=== PATIENT | male | born 1960 | race Caucasian/White ===

== ENCOUNTER 2018-03-01 14:21 | Emergency (ER) | payer BC ==
[2018-03-01] MEDS ORDERED: Aspirin 81 MG Tab.Chew PO ONE (14:42)
[2018-03-01] MEDS ORDERED: Nitroglycerin 2% Oint 1 GM UD Packet TOP ONE (14:42)
[2018-03-01] MEDS ORDERED: Sodium Chloride 0.9% 10 ML Syringe FLUSH PRN (14:42)
[2018-03-01] MEDS ORDERED: Sodium Chloride 0.9% 1,000 ML IV SCH (14:45)
--- NOTE | 2018-03-01 14:56 | EDM.PDOC ---
<Dangelo Laird Arlen - Last Filed: 03/01/18 15:13> ED HPI GENERAL MEDICAL PROBLEM - General Chief Complaint: Chest Pain Stated Complaint: CHEST PAIN Time Seen by Provider: 03/01/18 14:33 Source of Information: Reports: Patient, RN Notes Reviewed - History of Present Illness INITIAL COMMENTS - FREE TEXT/NARRATIVE: 57-year-old gentleman comes in with anterior chest discomfort. He had onset of chest pain about one hour ago just sitting at work not doing anything exertional at the time. A pressure type discomfort developed upper mid abdomen radiating to mid chest clear up to the base of his neck still into his back. Discomfort was very severe initially no more moderate. Radiation to shoulder or arm. He did have very mild dizziness initially but that has resolved. States he did get quite anxious with the discomfort. No nausea vomiting or diaphoresis. He does have history of heartburn but this does seem different, does seem more severe. He does not have known history for coronary artery disease. He is on a statin, states his cholesterol on the statin has been very low, in the 120 range. He is not diabetic, has no history of hypertension and does not smoke. Chest Pain Score (Numeric/FACES): 6 - Related Data Allergies Allergy/AdvReac Type Severity Reaction Status Date / Time No Known Allergies Allergy Verified 03/01/18 14:28 Home Meds: Home Meds Rosuvastatin Calcium [Crestor] 10 mg PO BEDTIME 06/15/16 [History] Sertraline [Zoloft] 50 mg PO DAILY 09/02/16 [History] Past Medical History HEENT History: Reports: Impaired Vision Cardiovascular History: Reports: High Cholesterol Psychiatric History: Reports: Anxiety - Past Surgical History Musculoskeletal Surgical History: Reports: Other (See Below) Social & Family History - Family History Family Medical History: Noncontributory - Tobacco Use Smoking Status *Q: Never Smoker - Caffeine Use Caffeine Use: Reports: Coffee - Recreational Drug Use Recreational Drug Use: No ED ROS GENERAL - Review of Systems Review Of Systems: See Below Constitutional: Denies: Fever, Chills, Diaphoresis HEENT: Denies: Throat Pain Respiratory: Denies: Shortness of Breath, Pleuritic Chest Pain Cardiovascular: Reports: Chest Pain, Lightheadedness (Gone) GI/Abdominal: Reports: Abdominal Pain (He does have some upper abdominal discomfort, pressure). Denies: Nausea, Vomiting Musculoskeletal: Reports: Neck Pain, Back Pain. Denies: Shoulder Pain (The pain does radiate to the base of his neck), Arm Pain Skin: Reports: No Symptoms Neurological: Reports: Dizziness (Gone). Denies: Trouble Speaking, Weakness ED EXAM, GENERAL - Physical Exam Exam: See Below General Appearance: Alert, No Apparent Distress Eye Exam: Bilateral Eye: PERRL Throat/Mouth: Normal Inspection Head: Atraumatic Neck: Supple, Full Range of Motion Respiratory/Chest: No Respiratory Distress, Lungs Clear, Normal Breath Sounds, Chest Non-Tender Cardiovascular: Regular Rate, Rhythm GI/Abdominal: Soft, Non-Tender. No: Guarding Extremities: Normal Inspection, Normal Range of Motion. No: Pedal Edema, Leg Pain Neurological: Alert, Oriented, No Motor/Sensory Deficits Skin Exam: Warm, Dry, Normal Color EKG INTERPRETATION EKG Date: 03/01/18 Rhythm: NSR Clay: Normal P-Wave: Present QRS: Normal ST-T: Normal Course - Vital Signs Last Recorded V/S: Last Vital Signs Temp 36.3 C 03/01/18 14:26 Pulse 98 03/01/18 18:18 Resp 24 H 03/01/18 18:18 BP 97/58 L 03/01/18 18:18 Pulse Ox 94 L 03/01/18 18:18 - Orders/Labs/Meds Orders: Active Orders 24 hr Category Date Time Status EKG 12 Lead [EKG Documentation Completion] [RC] STAT Care 03/01/18 14:42 Active Peripheral IV Care [RC] . DIRECTED Care 03/01/18 14:43 Active Peripheral IV Insertion Adult [OM.PC] Stat Oth 03/01/18 14:42 Ordered Labs: Laboratory Tests 03/01/18 03/01/18 03/01/18 Range/Units 15:10 15:10 15:10 WBC 4.60 (4.23-9.07) K/mm3 RBC 4.94 (4.63-6.08) M/mm3 Hgb 14.4 (13.7-17.5) gm/L Hct 43.2 (40.1-51.0) % MCV 87.4 (79.0-92.2) fl MCH 29.1 (25.7-32.2) pg MCHC 33.3 (32.2-35.5) g/dl RDW Std Deviation 44.4 H (35.1-43.9) fL Plt Count 235 (163-337) K/mm3 MPV 9.4 (9.4-12.3) fl Neut % (Auto) 51.3 (34.0-67.9) % Lymph % (Auto) 35.4 (21.8-53.1) % Marion % (Auto) 12.0 (5.3-12.2) % Eos % (Auto) 1.1 (0.8-7.0) Baso % (Auto) 0.2 (0.1-1.2) % Neut # (Auto) 2.36 (1.78-5.38) K/mm3 Lymph # (Auto) 1.63 (1.32-3.57) K/mm3 Marion # (Auto) 0.55 (0.30-0.82) K/mm3 Eos # (Auto) 0.05 (0.04-0.54) K/mm3 Baso # (Auto) 0.01 (0.01-0.08) K/mm3 Sodium 138 (136-145) mEq/L Potassium 4.0 (3.5-5.1) mEq/L Chloride 104 (98-107) mEq/L Carbon Dioxide 21 (21-32) mEq/L Anion Gap 17.0 H (5-15) BUN 24 H (7-18) mg/dL Creatinine 1.0 (0.7-1.3) mg/dL Est Cr Clr Drug Dosing 83.14 mL/min Estimated GFR (MDRD) > 60 (>60) mL/min BUN/Creatinine Ratio 24.0 H (14-18) Glucose 99 (74-106) mg/dL Calcium 9.3 (8.5-10.1) mg/dL Total Bilirubin 0.4 (0.2-1.0) mg/dL AST 23 (15-37) U/L ALT 36 (16-63) U/L Alkaline Phosphatase 69 (46-116) U/L Troponin I < 0.017 (0.00-0.056) ng/mL Total Protein 8.0 (6.4-8.2) g/dl Albumin 3.9 (3.4-5.0) g/dl Globulin 4.1 gm/dL Albumin/Globulin Ratio 1.0 (1-2) Lipase 139 (73-393) U/L 03/01/18 Range/Units 17:02 WBC (4.23-9.07) K/mm3 RBC (4.63-6.08) M/mm3 Hgb (13.7-17.5) gm/L Hct (40.1-51.0) % MCV (79.0-92.2) fl MCH (25.7-32.2) pg MCHC (32.2-35.5) g/dl RDW Std Deviation (35.1-43.9) fL Plt Count (163-337) K/mm3 MPV (9.4-12.3) fl Neut % (Auto) (34.0-67.9) % Lymph % (Auto) (21.8-53.1) % Marion % (Auto) (5.3-12.2) % Eos % (Auto) (0.8-7.0) Baso % (Auto) (0.1-1.2) % Neut # (Auto) (1.78-5.38) K/mm3 Lymph # (Auto) (1.32-3.57) K/mm3 Marion # (Auto) (0.30-0.82) K/mm3 Eos # (Auto) (0.04-0.54) K/mm3 Baso # (Auto) (0.01-0.08) K/mm3 Sodium (136-145) mEq/L Potassium (3.5-5.1) mEq/L Chloride (98-107) mEq/L Carbon Dioxide (21-32) mEq/L Anion Gap (5-15) BUN (7-18) mg/dL Creatinine (0.7-1.3) mg/dL Est Cr Clr Drug Dosing mL/min Estimated GFR (MDRD) (>60) mL/min BUN/Creatinine Ratio (14-18) Glucose (74-106) mg/dL Calcium (8.5-10.1) mg/dL Total Bilirubin (0.2-1.0) mg/dL AST (15-37) U/L ALT (16-63) U/L Alkaline Phosphatase (46-116) U/L Troponin I < 0.017 (0.00-0.056) ng/mL Total Protein (6.4-8.2) g/dl Albumin (3.4-5.0) g/dl Globulin gm/dL Albumin/Globulin Ratio (1-2) Lipase (73-393) U/L Meds: Medications Discontinued Medications Generic Name Dose Route Start Last Admin Trade Name Freq PRN Reason Stop Dose Admin Aspirin 324 mg 03/01/18 14:42 03/01/18 14:50 Aspirin PO 03/01/18 14:43 324 mg ONETIME ONE Administration Sodium Chloride 1,000 mls @ 150 mls/hr 03/01/18 14:45 03/01/18 14:49 Normal Saline IV 150 mls/hr ASDIRECTED JAREN Administration Ibuprofen 800 mg 03/01/18 16:06 03/01/18 16:16 Motrin PO 03/01/18 16:07 800 mg ONETIME ONE Administration Nitroglycerin 1 gm 03/01/18 14:42 03/01/18 14:50 Nitro-Bid 2% TOP 03/01/18 14:43 1 gm ONETIME ONE Administration Sodium Chloride 10 ml 03/01/18 14:42 03/01/18 14:50 Saline Flush FLUSH 10 ml ASDIRECTED PRN Administration Keep Vein Open - Re-Assessments/Exams Free Text/Narrative Re-Assessment/Exam: 03/01/18 15:13. EKG was normal, sinus rhythm, no ectopy. Have ordered Nitro-Bid , aspirin 324. Chest x-ray normal, change of shift, transferring care to Calin Laird at this time. Departure - Departure Disposition: Home, Self-Care 01 Clinical Impression: Chest pain in adult Instructions: Chest Wall Pain, [id number] Referrals: Byrce Tenorio MD [Primary Care Provider] - Forms: ED Department Discharge Additional Instructions: 1. 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 Also follow up with Dr. Tenorio when able. 2. Return to the ED if you have new episodes of chest pain, difficulty breathing , or other concerning symptoms. 3. There was no definite explanation for your episode of chest pain today. Your chest x-ray, EKG, and blood work including cardiac enzymes was all normal. Discuss with Dr. Tenorio about whether you need any new stress testing of your heart given today's episode. <Jojo Laird - Last Filed: 03/02/18 09:33> Course - Re-Assessments/Exams Free Text/Narrative Re-Assessment/Exam: 03/01/18 16:48 Trop neg, CBC and Chem/LFT's unremarkable. Patient states he did have a component of RUQ pain with his episode of epigastric/CP. Will get RUQ u/s to eval for cholelithiasis. Will also repeat trop. 03/01/18 17:56 U/S shows normal gallbladder, no stones. Rpt trop neg. Patient continues to feel well, no recurrence of pain. Encouraged him to f/u with PCP for further care. Discussed return precautions. 03/02/18 09:32 Departure - Departure Time of Disposition: 18:30
--- NOTE | 2018-03-01 16:05 | CR ---
Chest: Two views of the chest were obtained. Comparison: Prior chest x-ray of 06/15/16. Heart size and mediastinum are within normal limits. Lungs are clear. Minimal scoliosis is seen. Impression: 1. Nothing acute is seen on two-view chest x-ray. Diagnostic code #2
[2018-03-01] MEDS ORDERED: Ibuprofen 800 MG Tab PO ONE (16:06)
[2018-03-01 18:25] VITALS: BP 97/58
--- NOTE | 2018-03-02 07:44 | US ---
Limited abdominal ultrasound: Multiple real-time images of the upper right abdomen were obtained. Comparison: Prior abdominal and pelvic CT exam of 09/02/16 is available. Liver shows no focal parenchymal abnormality. Right kidney shows no hydronephrosis or mass and has a length of 11.5 cm. Gallbladder contains no gallstones. No gallbladder wall thickening or biliary duct dilatation is seen. Tail of pancreas is obscured by bowel gas. Other portions of the pancreas are within normal limits. Portal vein shows normal hepatopedal flow. Impression: 1. No abnormality is identified on right upper quadrant abdominal ultrasound. Diagnostic code #1 Agree with preliminary report issued by [facility] ([facility] preliminary report dictated on 03/01/18, 6:23 PM Central Time)
== END 2018-03-01 18:20 | disposition home or self-care (01) ==
LOC: JD.ED 14:21
DX: R07.9 Chest pain, unspecified (principal); Z79.899 Other long term (current) drug therapy
CPT/HCPCS: 36415; 71046; 76705; 80053; 83690; 84484; 85025; 93005; 96360; 96361; 99285; A9270; J7040; J7050; 93010; 99284-25

== ENCOUNTER 2018-10-01 11:28 | Emergency (ER) | payer BC ==
[2018-10-01 11:40] VITALS: BP 151/92
[2018-10-01] MEDS ORDERED: Lactated Ringers 1,000 ML IV ONE (12:13)
[2018-10-01] MEDS ORDERED: Ondansetron 4 MG/2 ML SDV IVPUSH ONE (12:13)
[2018-10-01] MEDS ORDERED: HYDROmorphone 1 MG/ML Syringe IVPUSH ONE (12:13)
[2018-10-01] MEDS ORDERED: Sodium Chloride 0.9% 10 ML Syringe FLUSH PRN (12:14)
--- NOTE | 2018-10-01 12:40 | EDM.PDOC ---
<Roberta Fischer - Last Filed: 10/01/18 12:33> ED HPI GENERAL MEDICAL PROBLEM - General Chief Complaint: Abdominal Pain Stated Complaint: ABDOMINAL PAIN Time Seen by Provider: 10/01/18 11:50 Source of Information: Reports: Patient, Family (), RN Notes Reviewed History Limitations: Reports: No Limitations - History of Present Illness INITIAL COMMENTS - FREE TEXT/NARRATIVE: Jeremiah is a 57 year old male who presents with worsening abdominal pain. Patient states over the last 1-2 weeks he has had intermittent lower abdominal pain that is sharp, stabbing and shooting pain that is suprapubic and radiates to the RLQ and LLQ. Last night he has 2 beers which made the pain much worse, did not sleep well through the night and the pain worsened this morning. His states at times he was "doubled over" and that he had a hard time walking into the ED this morning. He cannot identify any alleviating factors, but does state that movement seems to make things worse. He has had some nausea but no vomiting. He states that he has blood in his stool intermittently for the past few years, he describes alex red blood in his stool at times. His last BM was this morning and he denies any blood in that stool. He denies any black or tarry stools. He endorses urinary frequency but no urgency or burning. He states his abdominal pain is at a 9/10 currently. He does have a history of diverticulitis but states this pain is much worse. He has never had surgery to his abdomen, but did have colonoscopy and EGD recently and are reported as unremarkable. Patient was ill with fevers and chills 1 week ago that lasted 3 days, he treated with 2-3 Advil per day. He denies fever and chills today. Lower Abdomen Pain Score (Numeric/FACES): 8 - Related Data Allergies Allergy/AdvReac Type Severity Reaction Status Date / Time No Known Allergies Allergy Verified 10/01/18 11:39 Home Meds: Home Meds Rosuvastatin Calcium [Crestor] 10 mg PO BEDTIME 06/15/16 [History] Sertraline [Zoloft] 50 mg PO DAILY 09/02/16 [History] Acetaminophen/oxyCODONE [Percocet 325-5 MG] 1 tab PO Q4HR PRN #20 tab 10/01/18 [ Rx] Levofloxacin [Levaquin] 750 mg PO DAILY #9 tablet 10/01/18 [Rx] Ondansetron [Zofran ODT] 4 mg PO Q6H PRN #20 tab.dis 10/01/18 [Rx] metroNIDAZOLE [Flagyl] 500 mg PO Q8H #29 tab 10/01/18 [Rx] Past Medical History HEENT History: Reports: Impaired Vision Cardiovascular History: Reports: High Cholesterol Psychiatric History: Reports: Anxiety - Past Surgical History Musculoskeletal Surgical History: Reports: Other (See Below) Other Musculoskeletal Surgeries/Procedures:: minescus tear and repair Social & Family History - Family History Family Medical History: Noncontributory - Tobacco Use Smoking Status *Q: Never Smoker - Caffeine Use Caffeine Use: Reports: Coffee - Recreational Drug Use Recreational Drug Use: No ED ROS GENERAL - Review of Systems Review Of Systems: See Below Constitutional: Denies: Fever, Chills, Diaphoresis HEENT: Reports: No Symptoms Respiratory: Reports: No Symptoms. Denies: Shortness of Breath, Cough Cardiovascular: Reports: No Symptoms. Denies: Chest Pain Endocrine: Reports: No Symptoms GI/Abdominal: Reports: Abdominal Pain, Bloody Stool (intermittent), Nausea. Denies: Diarrhea, Hematemesis, Melena, Vomiting : Reports: Frequency. Denies: Dysuria, Flank Pain, Urgency Musculoskeletal: Reports: No Symptoms Skin: Reports: No Symptoms Neurological: Reports: No Symptoms Hematologic/Lymphatic: Reports: No Symptoms ED EXAM, GI/ABD - Physical Exam Exam: See Below Exam Limited By: No Limitations General Appearance: Alert, Mild Distress Respiratory/Chest: No Respiratory Distress, Lungs Clear, Normal Breath Sounds Cardiovascular: Regular Rate, Rhythm, No Murmur, No Rub GI/Abdominal Exam: Normal Bowel Sounds (suprapubic, RLQ and LLQ), Tender, Other (Charles's sign negative, McBurney point tenderness positive, rebound tenderness postive. Psoas and obturator signs postive bilaterally, but R>L). No: Hernia, Mass, Splenomegaly Neurological: Alert, Oriented, Normal Cognition Skin Exam: Warm, Dry, Intact, Normal Color Course - Vital Signs Last Recorded V/S: Last Vital Signs Temp 97.4 F 10/01/18 11:35 Pulse 79 10/01/18 11:35 Resp 18 10/01/18 11:35 BP 151/92 H 10/01/18 11:35 Pulse Ox 96 10/01/18 11:35 - Orders/Labs/Meds Orders: Active Orders 24 hr Category Date Time Status Peripheral IV Care [RC] . DIRECTED Care 10/01/18 12:15 Active Abdomen Pelvis w Cont [CT] Stat Exams 10/01/18 12:14 Taken Peripheral IV Insertion Adult [OM.PC] Routine Oth 10/01/18 12:14 Ordered Labs: Laboratory Tests 10/01/18 10/01/18 10/01/18 Range/Units 11:54 11:54 12:59 WBC 5.11 (4.23-9.07) K/mm3 RBC 5.08 (4.63-6.08) M/mm3 Hgb 14.5 (13.7-17.5) gm/L Hct 43.9 (40.1-51.0) % MCV 86.4 (79.0-92.2) fl MCH 28.5 (25.7-32.2) pg MCHC 33.0 (32.2-35.5) g/dl RDW Std Deviation 43.1 (35.1-43.9) fL Plt Count 292 (163-337) K/mm3 MPV 9.0 L (9.4-12.3) fl Neutrophils % (Manual) 51 (40-60) % Band Neutrophils % 0 (0-10) % Lymphocytes % (Manual) 41 H (20-40) % Atypical Lymphs % 0 % Monocytes % (Manual) 6 (2-10) % Eosinophils % (Manual) 1 (0.8-7.0) % Basophils % (Manual) 1 (0.2-1.2) Platelet Estimate Adequate RBC Morph Comment Normal Sodium 137 (136-145) mEq/L Potassium 3.7 (3.5-5.1) mEq/L Chloride 103 (98-107) mEq/L Carbon Dioxide 22 (21-32) mEq/L Anion Gap 15.7 H (5-15) BUN 19 H (7-18) mg/dL Creatinine 1.0 (0.7-1.3) mg/dL Est Cr Clr Drug Dosing 85.76 mL/min Estimated GFR (MDRD) > 60 (>60) mL/min BUN/Creatinine Ratio 19.0 H (14-18) Glucose 107 H (74-106) mg/dL Calcium 8.9 (8.5-10.1) mg/dL Total Bilirubin 0.4 (0.2-1.0) mg/dL AST 31 (15-37) U/L ALT 48 (16-63) U/L Alkaline Phosphatase 79 (46-116) U/L C-Reactive Protein 0.7 (<1.0) mg/dL Total Protein 8.3 H (6.4-8.2) g/dl Albumin 3.9 (3.4-5.0) g/dl Globulin 4.4 gm/dL Albumin/Globulin Ratio 0.9 L (1-2) Lipase 118 (73-393) U/L Urine Color Yellow (Yellow) Urine Appearance Clear (Clear) Urine pH 6.0 (5.0-8.0) Ur Specific [place] 1.010 (1.005-1.030) Urine Protein Negative (Negative) Urine Glucose (UA) Negative (Negative) Urine Ketones Negative (Negative) Urine Occult Blood Negative (Negative) Urine Nitrite Negative (Negative) Urine Bilirubin Negative (Negative) Urine Urobilinogen 0.2 (0.2-1.0) Ur Leukocyte Esterase Negative (Negative) Urine RBC Not seen (0-5) /hpf Urine WBC Not seen (0-5) /hpf Ur Epithelial Cells 0-5 (0-5) /hpf Urine Bacteria Not seen (FEW) /hpf Urine Mucus Few (FEW) /hpf Meds: Medications Discontinued Medications Generic Name Dose Route Start Last Admin Trade Name Freq PRN Reason Stop Dose Admin Hydromorphone HCl 1 mg 10/01/18 12:13 10/01/18 12:20 Dilaudid IVPUSH 10/01/18 12:14 1 mg ONETIME ONE Administration Lactated Ringer's 1,000 mls @ 999 mls/hr 10/01/18 12:13 10/01/18 12:20 Ringers, Lactated IV 10/01/18 13:13 999 mls/hr .BOLUS ONE Administration Levofloxacin 500 mg 10/01/18 14:47 10/01/18 14:57 Levaquin PO 10/01/18 14:48 500 mg ONETIME ONE Administration Metronidazole 500 mg 10/01/18 14:47 10/01/18 14:57 Flagyl PO 10/01/18 14:48 500 mg ONETIME ONE Administration Ondansetron HCl 4 mg 10/01/18 12:13 10/01/18 12:21 Zofran IVPUSH 10/01/18 12:14 4 mg ONETIME ONE Administration Sodium Chloride 10 ml 10/01/18 12:14 10/01/18 12:20 Saline Flush FLUSH 10 ml ASDIRECTED PRN Administration Keep Vein Open Departure - Departure Disposition: Home, Self-Care 01 Clinical Impression: Diverticulitis - Discharge Information Prescriptions: Acetaminophen/oxyCODONE [Percocet 325-5 MG] 1 tab PO Q4HR PRN #20 tab PRN Reason: Pain Levofloxacin [Levaquin] 750 mg PO DAILY #9 tablet metroNIDAZOLE [Flagyl] 500 mg PO Q8H #29 tab Ondansetron [Zofran ODT] 4 mg PO Q6H PRN #20 tab.dis PRN Reason: Nausea Instructions: Diverticulitis, [id number] Referrals: Bryce Tenorio MD [Primary Care Provider] - Forms: ED Department Discharge Additional Instructions: You were given medication the other can affect your ability drive and operate machinery. Do not drive or operative machinery within 10 hours of taking prescription narcotic pain medication. Take the antibiotics as prescribed. Take the Levaquin 1 tab daily for 10 days. your first dose was given in the ER. Start this prescription tomorrow. Take the Flagyl 1 tab 3 times a day for 10 days. Zofran 1 tab every 6-8 hours as needed for nausea. Percocet 1 or 2 tabs every 4-6 hours as needed for pain. Percocet is habit- forming, take as few these as needed to control your pain. Do not drive or operate machinery within 10 hours of taking Percocet. Recommend clear fluids and a bland diet. Follow-up with your primary care provider for recheck of your symptoms early this week. Please return to the ER if your symptoms change or worsen. - My Orders Last 24 Hours: My Active Orders 10/01/18 12:14 Abdomen Pelvis w Cont [CT] Stat Peripheral IV Insertion Adult [OM.PC] Routine 10/01/18 12:15 Peripheral IV Care [RC] . DIRECTED - Assessment/Plan Last 24 Hours: My Active Orders 10/01/18 12:14 Abdomen Pelvis w Cont [CT] Stat Peripheral IV Insertion Adult [OM.PC] Routine 10/01/18 12:15 Peripheral IV Care [RC] . DIRECTED <JordanAundrea Vega - Last Filed: 10/01/18 22:34> ED HPI GENERAL MEDICAL PROBLEM - History of Present Illness INITIAL COMMENTS - FREE TEXT/NARRATIVE: I have seen the patient and agree with the HPI as documented by GURINDER Coleman ED ROS GENERAL - Review of Systems Review Of Systems: See Below ED EXAM, GI/ABD - Physical Exam Exam: See Below GI/Abdominal Exam: No Distention, Guarding Course - Radiology Interpretation Free Text/Narrative:: CT of the abdomen and pelvis with contrast impression per [facility]: Sigmoid diverticulosis but no evidence for diverticulitis. - Re-Assessments/Exams Free Text/Narrative Re-Assessment/Exam: 10/01/18 14:48 I have seen the patent and agree with the HPI, ROS, PE as documented by GURINDER Coleman. Reviewed the labs and imaging with the patient. Despite labs and imaging not showing significant diverticulitis I have a high clinical suspicion given his exam and his tenderness to the lower abdomen and suprapubic area. I'm recommending treatment with Levaquin and Flagyl with close follow-up in the clinic. He Is instructed to return to the ER if symptoms change or worsen. Discharge instructions as documented. Departure - Departure Time of Disposition: 15:08 Condition: Fair - Discharge Information *PRESCRIPTION DRUG MONITORING PROGRAM REVIEWED*: No *COPY OF PRESCRIPTION DRUG MONITORING REPORT IN PATIENT JORDI: No
[2018-10-01] MEDS ORDERED: Levofloxacin 500 MG Tab PO ONE (14:47)
[2018-10-01] MEDS ORDERED: metroNIDAZOLE 500 MG Tab PO ONE (14:47)
--- NOTE | 2018-10-02 17:00 | CT ---
CT abdomen and pelvis Technique: Multiple axial sections were obtained from above the dome of the diaphragm inferiorly through the pubic symphysis. Intravenous and oral contrast was utilized. Delayed images were obtained through the bladder. Comparison: Prior CT abdomen and pelvis exam of 09/02/16 and abdominal ultrasound of 03/01/18. Findings: Visualized lung bases show nothing acute. Liver shows no focal parenchymal abnormality. Spleen appears within normal limits. Adrenal glands show no nodule. Pancreas is within normal limits. Gallbladder contains no calcified gallstones. Kidneys show symmetric contrast enhancement. Cyst is noted within the left kidney measuring 3.5 cm. Aorta shows no aneurysm. No retroperitoneal adenopathy or mesenteric abnormalities are seen. Appendix not definitely visualized. Diverticuli are seen within the descending colon and within the sigmoid colon. No inflammatory change of diverticulitis is seen. No free fluid is seen. Delayed images show contrast within the distal ureters as well as within the bladder. Bone window settings were reviewed which show mild degenerative change within the lower lumbar spine. Impression: 1. Incidental cyst within the left kidney which is stable from prior exam. Incidental diverticuli with no evidence of diverticulitis noted within the descending and sigmoid colon. 2. Nothing acute is appreciated on CT study of the abdomen and pelvis. Diagnostic code #2 I agree with preliminary report from [facility], finalized on 10/01/18, 3:23 PM Central Time
== END 2018-10-01 15:33 | disposition home or self-care (01) ==
LOC: JD.ED 11:28
DX: K57.32 Diverticulitis of large intestine without perforation or abscess without bleeding (principal); E78.00 Pure hypercholesterolemia, unspecified; F41.9 Anxiety disorder, unspecified; Z79.899 Other long term (current) drug therapy
CPT/HCPCS: 36415; 74177; 80053; 81001; 83690; 85007; 85027; 86140; 96361; 96374; 96375; 99284; A9270; J1170; J2405; J7120

== ENCOUNTER 2019-09-16 11:14 | Emergency (ER) | payer BC ==
[2019-09-16 11:39] VITALS: BP 151/98; PULSE 64
[2019-09-16] MEDS ORDERED: Metoclopramide 10 MG/2 ML SDV IVPUSH ONE (11:47)
[2019-09-16] MEDS ORDERED: LORazepam 2 MG/ML SDV IVPUSH ONE (11:48)
--- NOTE | 2019-09-16 11:51 | EDM.PDOC ---
ED HPI GENERAL MEDICAL PROBLEM - General Chief Complaint: Neuro Symptoms/Deficits Stated Complaint: LIGHTHEADED FEELS LIKE HE IS GOING TO PASS OUT Time Seen by Provider: 09/16/19 11:36 Source of Information: Reports: Patient, Family (spouse) History Limitations: Reports: No Limitations - History of Present Illness INITIAL COMMENTS - FREE TEXT/NARRATIVE: 58-year-old male presents to the ED in the company of his . Patient states that he's had vertigo symptoms in the past particularly last March and parts of April. He believes symptoms lasted intermittently for about 2 months. He did have an MRI of the brain towards the end of May. Barely it ruled out any acoustic neuroma. It then settled down until the last few days when he started experience increased dizziness on movement. Is interpreted as a feeling of spinning and being off kilter with blurred ,"swimmy vision." He has a mild headache. He states when he is walking he's veering towards the right side. Some falls or closed head injuries. No humming buzzing or ringing in his ears. Mild headache at this time. Symptoms seem to be much worse this morning particular after trying to work out. Patient is on Crestor and Zoloft both for a lengthy period of time. No new medications. Meclizine 25 mg this morning at about 0900 hrs. with no relief of symptoms. No associated nausea or vomiting. He is recovering from arthroscopic surgery right shoulder 2 weeks ago. Doing well with this and not needing much for pain relief. Onset: Gradual Onset Date: 09/14/19 (Braden did vertigo symptoms intermittently over the last 2 days but much worse this morning.) Duration: Day(s):, Getting Worse, Intermittent, Waxing/Waning Location: Reports: Generalized (Generalized sense of dizziness with movement. He does still sense that his vision is off even lying still.) Quality: Reports: Other (Sense of spinning of the room.) Severity: Moderate Improves with: Reports: Rest Worsens with: Reports: Movement Context: Denies: Activity, Exercise, Lifting, Sick Contact, Trauma, Other Associated Symptoms: Reports: Headaches, Loss of Appetite, Malaise. Denies: No Other Symptoms, Confusion, Chest Pain, Cough, cough w sputum, Diaphoresis, Fever /Chills (Mild headache at this time), Nausea/Vomiting, Rash, Seizure, Shortness of Breath, Syncope Treatments [employer]: Reports: Other (see below) (He did take a meclizine 25 mg tablet this morning at 0900 hrs. with no relief of symptoms.) - Related Data Allergies Allergy/AdvReac Type Severity Reaction Status Date / Time amoxicillin AdvReac Abdominal Verified 09/16/19 11:42 Cramps oxycodone AdvReac Nausea Verified 09/16/19 11:42 Home Meds: Home Meds Rosuvastatin Calcium [Crestor] 10 mg PO BEDTIME 06/15/16 [History] Sertraline [Zoloft] 50 mg PO DAILY 09/02/16 [History] Metoclopramide HCl [Reglan] 5 mg PO Q8H #15 tablet 09/16/19 [Rx] Past Medical History HEENT History: Reports: Impaired Vision Cardiovascular History: Reports: High Cholesterol Psychiatric History: Reports: Anxiety - Past Surgical History Musculoskeletal Surgical History: Reports: Shoulder Surgery, Other (See Below) Other Musculoskeletal Surgeries/Procedures:: minescus tear and repair Social & Family History - Family History Family Medical History: Noncontributory - Tobacco Use Smoking Status *Q: Unknown Ever Smoked - Caffeine Use Caffeine Use: Reports: Coffee - Living Situation & Occupation Living situation: Reports: Occupation: Employed ED ROS GENERAL - Review of Systems Review Of Systems: See Below Constitutional: Reports: Malaise, Weakness, Fatigue, Decreased Appetite. Denies : Fever, Chills HEENT: Reports: Vertigo, Vision Change (Feels his vision is off slightly blurry in swimming at times. Associated with vertigo symptoms.) Respiratory: Reports: No Symptoms Cardiovascular: Reports: No Symptoms, Lightheadedness. Denies: Chest Pain, Blood Pressure Problem, Claudication, Edema, Orthopnea, Palpitations Endocrine: Reports: No Symptoms, Polydypsia, Polyuria GI/Abdominal: Reports: No Symptoms (Mild.). Denies: Diarrhea, Nausea, Vomiting : Reports: Frequency Musculoskeletal: Reports: Other (Recovering from right arthroscopic surgery of the shoulder for rotator cuff repair.) Skin: Reports: No Symptoms Neurological: Reports: Dizziness, Headache, Difficulty Walking, Gait Disturbance. Denies: Confusion, Numbness, Paresthesia (Mild), Syncope, Tingling , Trouble Speaking, Weakness, Change in Speech Psychiatric: Reports: Anxiety, Depression (Currently on Zoloft and doing well.) Hematologic/Lymphatic: Reports: No Symptoms Immunologic: Reports: No Symptoms ED EXAM, DIZZINESS - Physical Exam Exam: See Below Exam Limited By: No Limitations General Appearance: Alert, WD/WN, Anxious, Mild Distress, Other (Attempt is 36.3. Heart rate was 64 and sinus respiratory was 16 with sats of 94% on room air recorded. BP initially was elevated at 1 5198 but quickly came down to 136/ 95.) Eye Exam: Bilateral Eye: Normal Inspection, Nystagmus (Very mild nystagmus on left lateral gaze.), PERRL Nystagmus: worsens with head to R Ears: Normal External Exam, Normal TMs Throat/Mouth: Normal Inspection, Normal Lips, Normal Teeth, Normal Oropharynx, Other (Uvula is in the midline.) Head Exam: Atraumatic, Normocephalic Vertigo: worsens with head to R, reproducible Neck: Normal Inspection, Supple, Non-Tender, Full Range of Motion. No: Carotid Bruit, Lymphadenopathy (L), Lymphadenopathy (R), Thyromegaly Respiratory/Chest: No Respiratory Distress, Lungs Clear, Normal Breath Sounds, Chest Non-Tender Cardiovascular: Normal Peripheral Pulses, Regular Rate, Rhythm, No Edema, No Gallop, No Murmur, No Rub GI/Abdominal: Normal Bowel Sounds, Soft, Non-Tender, No Organomegaly, No Abnormal Bruit, No Mass, Pelvis Stable Neurological: Alert, Normal Mood/Affect, Normal Dorsiflexion, CN II-XII Intact, Normal Plantar Flexion, No Motor/Sensory Deficits, Oriented x 3, Abnormal Gait, Ataxia (Mildly ataxic gait.). No: Normal Gait, Abnormal Finger to Nose (He got complete finger to nose exam on the right side due to recent surgery on the right shoulder. Has decreased forward flexion and abduction. To do rapid alternating movements without issue. He had normal [id number] testing bilaterally.), Babinski, Tremor, Straight Leg Raise (L), Straight Leg Raise (R) Extremities: Other (Healing arthroscopic wounds right shoulder with no signs of infection.). No: Normal Range of Motion (Decreased range of motion right shoulder particularly forward flexion to recent arthroscopic repair single) Psychiatric: Anxious Skin Exam: Warm, Dry (Mildly anxious.), Intact, Normal Color, No Rash EKG INTERPRETATION EKG Date: 09/16/19 Time: 12:09 Rhythm: NSR Rate (Beats/Min): 68 [place]: Normal P-Wave: Present QRS: Other (There is an RSR prime wave in the 2. Inserted to be a normal variant.) ST-T: Normal QT: Normal EKG Interpretation Comments: Normal ECG Course - Vital Signs Last Recorded V/S: Last Vital Signs Temp 36.3 C 09/16/19 11:36 Pulse 64 09/16/19 11:36 Resp 16 09/16/19 11:36 BP 151/98 H 09/16/19 11:36 Pulse Ox 94 L 09/16/19 11:36 - Orders/Labs/Meds Orders: Active Orders 24 hr Category Date Time Status EKG Documentation Completion [RC] STAT Care 09/16/19 11:49 Active Sodium Chloride 0.9% [Normal Saline] 1,000 ml Med 09/16/19 12:00 Active IV ASDIRECTED Sodium Chloride 0.9% [Normal Saline] 100 ml Med 09/16/19 13:30 Active IV ASDIRECTED Sodium Chloride 0.9% [Saline Flush] Med 09/16/19 13:29 Active 10 ml FLUSH ONETIME PRN Medication Orders Sodium Chloride (Normal Saline) 1,000 mls @ 500 mls/hr IV ASDIRECTED JAREN Last Admin: 09/16/19 12:13 Dose: 500 mls/hr Sodium Chloride (Normal Saline) 100 mls @ 75 mls/hr IV ASDIRECTED JAREN Last Admin: 09/16/19 13:47 Dose: 75 mls/hr Sodium Chloride (Saline Flush) 10 ml FLUSH ONETIME PRN PRN Reason: IV FLUSH Last Admin: 09/16/19 13:47 Dose: 10 ml Labs: Laboratory Tests 09/16/19 09/16/19 09/16/19 Range/Units 12:12 12:12 12:12 WBC 5.22 (4.23-9.07) K/mm3 RBC 4.88 (4.63-6.08) M/mm3 Hgb 14.0 (13.7-17.5) gm/dl Hct 42.5 (40.1-51.0) % MCV 87.1 (79.0-92.2) fl MCH 28.7 (25.7-32.2) pg MCHC 32.9 (32.2-35.5) g/dl RDW Std Deviation 43.6 (35.1-43.9) fL Plt Count 320 (163-337) K/mm3 MPV 9.0 L (9.4-12.3) fl Neut % (Auto) 48.4 (34.0-67.9) % Lymph % (Auto) 37.2 (21.8-53.1) % [place] % (Auto) 12.3 H (5.3-12.2) % Eos % (Auto) 1.7 (0.8-7.0) Baso % (Auto) 0.4 (0.1-1.2) % Neut # (Auto) 2.53 (1.78-5.38) K/mm3 Lymph # (Auto) 1.94 (1.32-3.57) K/mm3 [place] # (Auto) 0.64 (0.30-0.82) K/mm3 Eos # (Auto) 0.09 (0.04-0.54) K/mm3 Baso # (Auto) 0.02 (0.01-0.08) K/mm3 D-Dimer, Quantitative (0.19-0.50) mg/L Sodium 140 (136-145) mEq/L Potassium 4.3 (3.5-5.1) mEq/L Chloride 106 (98-107) mEq/L Carbon Dioxide 21 (21-32) mEq/L Anion Gap 17.3 H (5-15) BUN 15 (7-18) mg/dL Creatinine 1.0 (0.7-1.3) mg/dL Est Cr Clr Drug Dosing 84.71 mL/min Estimated GFR (MDRD) > 60 (>60) mL/min BUN/Creatinine Ratio 15.0 (14-18) Glucose 91 (74-106) mg/dL Hemoglobin A1c 6.40 H (4.50-6.20) % Calcium 9.3 (8.5-10.1) mg/dL Magnesium 1.8 (1.8-2.4) mg/dl Total Bilirubin 0.4 (0.2-1.0) mg/dL AST 17 (15-37) U/L ALT 38 (16-63) U/L Alkaline Phosphatase 72 (46-116) U/L Total Protein 7.5 (6.4-8.2) g/dl Albumin 3.7 (3.4-5.0) g/dl Globulin 3.8 gm/dL Albumin/Globulin Ratio 1.0 (1-2) TSH 3rd Generation 1.221 (0.358-3.74) uIU/mL 09/16/19 Range/Units 12:12 WBC (4.23-9.07) K/mm3 RBC (4.63-6.08) M/mm3 Hgb (13.7-17.5) gm/dl Hct (40.1-51.0) % MCV (79.0-92.2) fl MCH (25.7-32.2) pg MCHC (32.2-35.5) g/dl RDW Std Deviation (35.1-43.9) fL Plt Count (163-337) K/mm3 MPV (9.4-12.3) fl Neut % (Auto) (34.0-67.9) % Lymph % (Auto) (21.8-53.1) % [place] % (Auto) (5.3-12.2) % Eos % (Auto) (0.8-7.0) Baso % (Auto) (0.1-1.2) % Neut # (Auto) (1.78-5.38) K/mm3 Lymph # (Auto) (1.32-3.57) K/mm3 [place] # (Auto) (0.30-0.82) K/mm3 Eos # (Auto) (0.04-0.54) K/mm3 Baso # (Auto) (0.01-0.08) K/mm3 D-Dimer, Quantitative 1.74 H (0.19-0.50) mg/L Sodium (136-145) mEq/L Potassium (3.5-5.1) mEq/L Chloride (98-107) mEq/L Carbon Dioxide (21-32) mEq/L Anion Gap (5-15) BUN (7-18) mg/dL Creatinine (0.7-1.3) mg/dL Est Cr Clr Drug Dosing mL/min Estimated GFR (MDRD) (>60) mL/min BUN/Creatinine Ratio (14-18) Glucose (74-106) mg/dL Hemoglobin A1c (4.50-6.20) % Calcium (8.5-10.1) mg/dL Magnesium (1.8-2.4) mg/dl Total Bilirubin (0.2-1.0) mg/dL AST (15-37) U/L ALT (16-63) U/L Alkaline Phosphatase (46-116) U/L Total Protein (6.4-8.2) g/dl Albumin (3.4-5.0) g/dl Globulin gm/dL Albumin/Globulin Ratio (1-2) TSH 3rd Generation (0.358-3.74) uIU/mL Meds: Medications Generic Name Dose Route Start Last Admin Trade Name Freq PRN Reason Stop Dose Admin Sodium Chloride 1,000 mls @ 500 mls/hr 09/16/19 12:00 09/16/19 12:13 Normal Saline IV 500 mls/hr ASDIRECTED JAREN Administration Sodium Chloride 100 mls @ 75 mls/hr 09/16/19 13:30 09/16/19 13:47 Normal Saline IV 75 mls/hr ASDIRECTED JAREN Administration Sodium Chloride 10 ml 09/16/19 13:29 09/16/19 13:47 Saline Flush FLUSH 10 ml ONETIME PRN Administration IV FLUSH Discontinued Medications Generic Name Dose Route Start Last Admin Trade Name Freq PRN Reason Stop Dose Admin Dexamethasone 10 mg 09/16/19 14:12 09/16/19 14:47 Dexamethasone IVPUSH 09/16/19 14:13 10 mg ONETIME ONE Administration Hydromorphone HCl 0.5 mg 09/16/19 13:39 09/16/19 13:52 Dilaudid IVPUSH 09/16/19 13:40 0.5 mg ONETIME ONE Administration Iopamidol 100 ml 09/16/19 13:29 09/16/19 13:47 Isovue-370 (76%) IVPUSH 09/16/19 13:30 100 ml ONETIME ONE Administration Lorazepam 1 mg 09/16/19 11:48 09/16/19 12:13 Ativan IVPUSH 09/16/19 11:49 1 mg ONETIME ONE Administration Metoclopramide HCl 10 mg 09/16/19 11:47 09/16/19 12:12 Reglan IVPUSH 09/16/19 11:48 10 mg ONETIME ONE Administration - Radiology Interpretation Free Text/Narrative:: 58-year-old male presents to the ED with gradually worsening signs and symptoms of vertigo over the last 2 days but much worse this morning. Attempts to work out seem to make the vertical much worse this morning. He is listing to the right side when he walks. He appreciates swimmy blurred vision intermittently. Symptoms do get better with rest. He had similar symptoms this summer in late March or early April that did go away up until the last few days. No recent sinus or cold symptoms. He is afebrile. Vital signs revealed mild hypertension initially but blood pressure came back down to normal fairly soon after admission to the ED. Oral exam is normal other than mild left-sided nystagmus. No signs of focal murmur motor neurological deficit or cerebellar dysfunction. Appears to have benign positional vertigo. Patient took meclizine 25 mg by mouth earlier this morning with no relief of symptoms. Plan IV normal saline at 500 mils per hour. Will give Reglan 10 mg IV and Ativan 1 mg IV for symptom relief. Routine labs and ECG to be obtained. Glycosylated protein as he appreciates that he's had mild polydipsia polyuria last few weeks. He was told in the past that he was prediabetic. - Re-Assessments/Exams Free Text/Narrative Re-Assessment/Exam: 09/16/19 12:10: I did review Dr. Blankenship`s( radiologist) dictation note on MRI done June 15 this year. She did diffuse sinusitis on the left side in the maxillary ethmoid and sphenoid sinuses. No acoustic neuroma was identified. Patient states he did see --ENT physician prior to the MRI. Was given a shot of steroid intramuscularly and he said his symptoms cleared up within 48 hours. 09/16/19 12:32 Hematology is back revealing a normal white count at 5.22. Differential auto differential shows 48% neutrophils and 37% lymphocytes suggesting a very minimal right shift. Hemoglobin is 14.0 with hematocrit of 42.5. Platelet count 320,000. 09/16/19 12:54 D-dimer is elevated at 1.74. Of note he is 2 weeks out since right shoulders surgery. O2 sats remained 94% which is bit low for a man of his age.. He is a nonsmoker. Sodium 140 with potassium of 4.3. Chloride 106 with a bicarbonate of 21. Anion gap is mildly elevated at 17.3. BUN was 15 with a creatinine of 1.0. Glucose was 91. Hemoglobin A1c was 6.40 indicating he is not diabetic. Calcium is 9.3 with a magnesium of 1.8. Liver function normal. Total protein is 7.5 and albumin fraction of 3.7. TSH is normal at 1.22. Plan due to elevated d-dimer 2 weeks postop right shoulder arthroscopy surgery and persistent slightly low O2 sats of 94% on room air I will proceed with CT pulmonary and gram of the chest. Discussed the findings with the patient and advised that he will need a CT pulmonary angiogram scan done. If it proves negative then he will receive a dose of steroid intravenously. 09/16/19 13:39 patient is having increased right shoulder pain since in the ED. Is requesting Motrin. However out of concerns for possible pulmonary embolism I will withhold Motrin and give him Dilaudid 0.5 mg IV for pain relief just an off chance that he requires anticoagulation. 09/16/19 14:10 CT pulmonary and gram has been completed. I do not see any evidence of pulmonary embolism on examination. He does have mild bibasilar atelectasis. Does have changes compatible with interstitial fibrosis and emphysematous change in both lungs. Cyst containing air within the right lung base measuring about 2 cm. Under was noted within the superior segment of the right lower lung measuring 6 mm. Small pleural-based nodules noted within the right upper lung measuring 4 mm. These degenerative changes in his lungs are likely the cause of his persistent low O2 sats of 94% on room air. He does have diffuse degenerative change in the mid thoracic spine with narrowing of the disc spaces and some anterior lipping at multiple levels mid thoracic spine. I am going to give him a dose of dexamethasone 10 mg IV to relieve inflammation. I 'm going to discharge him on Reglan tablet 10 mg every 8 hours until the vertigo symptoms get better. 15 tablets provided. Departure - Departure Time of Disposition: 14:31 Disposition: Home, Self-Care 01 Condition: Fair Clinical Impression: Benign paroxysmal positional vertigo Qualifiers: Laterality: left Qualified Code(s): H81.12 - Benign paroxysmal vertigo, left ear - Discharge Information *PRESCRIPTION DRUG MONITORING PROGRAM REVIEWED*: Not Applicable *COPY OF PRESCRIPTION DRUG MONITORING REPORT IN PATIENT JORDI: Not Applicable Prescriptions: Metoclopramide HCl [Reglan] 5 mg PO Q8H #15 tablet Referrals: Bryce Tenorio MD [Primary Care Provider] - Forms: ED Department Discharge Additional Instructions: Evaluation the emergency room today in regards to onset of vertigo symptoms over the last 3 or 4 days --worse today. Examination reveals normal neurological examination with no focal deficit. You were treated with intravenous Reglan 10 mg with Ativan 1 mg to bring the vertigo under control. Oxygen levels remained around 94% while in the ED and the D-dimer test came back slightly elevated suggesting increased clotting. This is likely related to your recent surgery in your right shoulder. However CT pulmonary angiogram was completed to rule out any blood clot in the lungs and no blood clots were identified. The chest CT does reveal some mild age-related emphysematous changes in both lungs and a 6 mm nodule in the base of the right lung which appears to be benign. The radiologist recommends repeat CT scan of the chest in 9 months time(sooner if you were ever a smoker) to further evaluate this would be in May 2020. System make sure that the nodule remains benign in appearance and is not growing. Treatment of the vertigo is to be Reglan 5 mg every 8 hours for the next 5 days or until the vertigo goes away. Given a dose of steroid dexamethasone 10 mg intravenously before discharge to reduce inflammation in the labyrinth 3 improve vertigo symptoms over the next couple of days since it seemed to work well for you in the past. Vertigo symptoms will recur at some point in the future. However this is unpredictable we have a couple of episodes were usually continued to have intermittent problems with vertigo. Follow-up with personal care physician or return to ED if any further problems occur. Sepsis Event Note - Evaluation Sepsis Screening Result: No Definite Risk - Focused Exam Vital Signs: Vital Signs Temp Pulse Resp BP Pulse Ox 09/16/19 11:36 36.3 C 64 16 151/98 H 94 L Date Exam was Performed: 09/16/19 Time Exam was Performed: 14:48 - My Orders Last 24 Hours: My Active Orders 09/16/19 11:49 EKG Documentation Completion [RC] STAT 09/16/19 12:00 Sodium Chloride 0.9% [Normal Saline] 1,000 ml IV ASDIRECTED 09/16/19 13:29 Sodium Chloride 0.9% [Saline Flush] 10 ml FLUSH ONETIME PRN 09/16/19 13:30 Sodium Chloride 0.9% [Normal Saline] 100 ml IV ASDIRECTED - Assessment/Plan Last 24 Hours: My Active Orders 09/16/19 11:49 EKG Documentation Completion [RC] STAT 09/16/19 12:00 Sodium Chloride 0.9% [Normal Saline] 1,000 ml IV ASDIRECTED 09/16/19 13:29 Sodium Chloride 0.9% [Saline Flush] 10 ml FLUSH ONETIME PRN 09/16/19 13:30 Sodium Chloride 0.9% [Normal Saline] 100 ml IV ASDIRECTED
[2019-09-16] MEDS ORDERED: Sodium Chloride 0.9% 1,000 ML IV SCH (12:00)
[2019-09-16 12:34] LABS: HEMOGLOBIN A1C 6.4 % (4.50-6.20)
[2019-09-16] MEDS ORDERED: Iopamidol 755 Mg/ML 100 ML Bottle IVPUSH ONE (13:29)
[2019-09-16] MEDS ORDERED: Sodium Chloride 0.9% 10 ML Syringe FLUSH PRN (13:29)
[2019-09-16] MEDS ORDERED: Sodium Chloride 0.9% 100 ML IV SCH (13:30)
[2019-09-16] MEDS ORDERED: HYDROmorphone 0.5 MG/0.5 ML Syringe IVPUSH ONE (13:39)
[2019-09-16] MEDS ORDERED: Dexamethasone 10 MG/ML SDV IVPUSH ONE (14:12)
--- NOTE | 2019-09-16 14:16 | CT ---
CT chest Technique: Multiple axial sections through the chest were obtained. Intravenous contrast was utilized. Study has been performed as a pulmonary angiogram protocol. Comparison: No prior chest CT exam, prior chest x-ray of 11/26/13. Findings: Pulmonary arteries are fairly well-opacified. No filling defects are seen to indicate pulmonary embolism. Mediastinum and hilar regions show no adenopathy. Aorta shows no aneurysm. No pericardial fluid is seen. Visualized upper abdominal structure shows no discrete abnormality. Lungs show slight emphysematous change. Cyst containing air is noted within the right lung base measuring 2.1 cm. Small nodule is noted within the superior segment of the right lower lung measuring 6 mm. Small pleural-based nodule is noted within the right upper lung measuring 4 mm. Lungs otherwise are clear with no acute parenchymal change. Impression: 1. Mild interstitial fibrosis and appearance of mild emphysematous change. 2. 6 mm nodule within the right lung base. Recommend repeat CT chest study in 9 months to further evaluate. This would occur in May,. 3. No findings of pulmonary embolism. No acute parenchymal process is seen within the lungs. Diagnostic code #9 This report was dictated in [place] Standard Time
== END 2019-09-16 14:54 | disposition home or self-care (01) ==
LOC: JD.ED 11:14
DX: H81.12 Benign paroxysmal vertigo, left ear (principal); E78.00 Pure hypercholesterolemia, unspecified; F41.9 Anxiety disorder, unspecified; Z88.1 Allergy status to other antibiotic agents; Z88.5 Allergy status to narcotic agent; Z79.899 Other long term (current) drug therapy
CPT/HCPCS: 36415; 71275; 80053; 83036; 83735; 84443; 85025; 85379; 93005; 96361; 96374; 96375; 99284; J1100; J1170; J2060; J2765; J7030; J7050; Q9967; 93010; 99283

== ENCOUNTER 2020-04-28 01:32 | Emergency (ER) | payer BC ==
[2020-04-28 01:45] VITALS: BP 163/101; PULSE 72
[2020-04-28] MEDS ORDERED: Ondansetron 4 MG/2 ML SDV IVPUSH ONE (02:04)
[2020-04-28] MEDS ORDERED: HYDROmorphone 0.5 MG/0.5 ML Syringe IVPUSH ONE (02:05)
--- NOTE | 2020-04-28 02:08 | EDM.PDOC ---
ED HPI GENERAL MEDICAL PROBLEM - General Chief Complaint: Abdominal Pain Stated Complaint: severe abdominal pain and vomitting Time Seen by Provider: 04/28/20 01:58 Source of Information: Reports: Patient History Limitations: Reports: No Limitations - History of Present Illness INITIAL COMMENTS - FREE TEXT/NARRATIVE: This is a 59-year-old male. He was in [place] and was coming home and stopped at a truck stop got hot dog and some flavored peanuts and then he stopped at [employer] around 8 or 9 and had a meal there. And then when he got home around 1030 he was feeling okay until about 130 he woke up with nausea and vomiting. He vomited up his hotdogs he vomited up his peanuts and his [employer]. He continues to have nausea and vomiting upper abdominal pain and he comes to the ER for evaluation. He history of food allergies. He denies any other acute symptoms. He has had no diarrhea at this time. Abdomen Pain Score (Numeric/FACES): 10 - Related Data Allergies Allergy/AdvReac Type Severity Reaction Status Date / Time amoxicillin AdvReac Abdominal Verified 04/28/20 01:45 Cramps oxycodone AdvReac Nausea Verified 04/28/20 01:45 Home Meds: Home Meds Rosuvastatin Calcium [Crestor] 10 mg PO BEDTIME 06/15/16 [History] Sertraline [Zoloft] 50 mg PO DAILY 09/02/16 [History] Dicyclomine [Bentyl] 20 mg PO Q6H PRN #12 tab 04/28/20 [Rx] Ondansetron [Zofran] 4 mg PO Q6H PRN #12 tab 04/28/20 [Rx] Past Medical History HEENT History: Reports: Impaired Vision Cardiovascular History: Reports: High Cholesterol Psychiatric History: Reports: Anxiety - Past Surgical History Musculoskeletal Surgical History: Reports: Shoulder Surgery, Other (See Below) Other Musculoskeletal Surgeries/Procedures:: minescus tear and repair Social & Family History - Family History Family Medical History: Noncontributory - Tobacco Use Smoking Status *Q: Never Smoker Second Hand Smoke Exposure: No - Caffeine Use Caffeine Use: Reports: None - Recreational Drug Use Recreational Drug Use: No - Living Situation & Occupation Living situation: Reports: Occupation: Employed ED ROS GENERAL - Review of Systems Review Of Systems: See Below Constitutional: Denies: Fever, Chills HEENT: Reports: No Symptoms Respiratory: Reports: No Symptoms Cardiovascular: Reports: No Symptoms Endocrine: Reports: No Symptoms GI/Abdominal: Reports: Abdominal Pain, Nausea, Vomiting. Denies: Diarrhea : Reports: No Symptoms Musculoskeletal: Reports: No Symptoms Skin: Reports: No Symptoms Neurological: Reports: No Symptoms Psychiatric: Reports: No Symptoms Hematologic/Lymphatic: Reports: No Symptoms ED EXAM, GI/ABD - Physical Exam Exam: See Below Exam Limited By: No Limitations General Appearance: Alert, WD/WN, Mild Distress Eyes: Bilateral: Normal Appearance Ears: Normal External Exam Nose: Normal Inspection Throat/Mouth: Normal Lips, Normal Voice, No Airway Compromise Head: Normocephalic Neck: Supple Respiratory/Chest: No Respiratory Distress, Lungs Clear, Normal Breath Sounds Cardiovascular: Regular Rate, Rhythm, No Murmur GI/Abdominal Exam: Soft, Other (Very tender in the mid abdomen and left upper quadrant but not so much the right upper quadrant and he has a negative Charles sign. He complains of pain in that upper area and tightness. He denies any lower abdominal pain on palpation. Bowel sounds are quiet) Back Exam: Full Range of Motion Extremities: Normal Inspection, Normal Range of Motion Neurological: Alert, Oriented Psychiatric: Normal Affect, Normal Mood Skin Exam: Warm, Dry Course - Vital Signs Last Recorded V/S: Last Vital Signs Temp 97.2 F 04/28/20 01:42 Pulse 72 04/28/20 01:42 Resp 16 04/28/20 01:42 BP 163/101 H 04/28/20 01:42 Pulse Ox 93 L 04/28/20 01:42 - Orders/Labs/Meds Orders: Active Orders 24 hr Category Date Time Status Sodium Chloride 0.9% [Normal Saline] 1,000 ml Med 04/28/20 02:15 Active IV ASDIRECTED Medication Orders Sodium Chloride (Normal Saline) 1,000 mls @ 1,000 mls/hr IV ASDIRECTED [facility] Last Admin: 04/28/20 02:12 Dose: 1,000 mls/hr Documented by: LUAN Labs: Laboratory Tests 04/28/20 04/28/20 Range/Units 02:00 02:00 WBC 7.51 (4.23-9.07) K/mm3 RBC 5.11 (4.63-6.08) M/mm3 Hgb 14.9 (13.7-17.5) gm/dl Hct 45.2 (40.1-51.0) % MCV 88.5 (79.0-92.2) fl MCH 29.2 (25.7-32.2) pg MCHC 33.0 (32.2-35.5) g/dl RDW Std Deviation 45.9 H (35.1-43.9) fL Plt Count 302 (163-337) K/mm3 MPV 9.2 L (9.4-12.3) fl Neut % (Auto) 64.0 (34.0-67.9) % Lymph % (Auto) 24.1 (21.8-53.1) % [place] % (Auto) 10.5 (5.3-12.2) % Eos % (Auto) 1.1 (0.8-7.0) Baso % (Auto) 0.3 (0.1-1.2) % Neut # (Auto) 4.81 (1.78-5.38) K/mm3 Lymph # (Auto) 1.81 (1.32-3.57) K/mm3 [place] # (Auto) 0.79 (0.30-0.82) K/mm3 Eos # (Auto) 0.08 (0.04-0.54) K/mm3 Baso # (Auto) 0.02 (0.01-0.08) K/mm3 Sodium 137 (136-145) mEq/L Potassium 3.9 (3.5-5.1) mEq/L Chloride 103 (98-107) mEq/L Carbon Dioxide 22 (21-32) mEq/L Anion Gap 15.9 H (5-15) BUN 20 H (7-18) mg/dL Creatinine 1.1 (0.7-1.3) mg/dL Est Cr Clr Drug Dosing 76.06 mL/min Estimated GFR (MDRD) > 60 (>60) mL/min BUN/Creatinine Ratio 18.2 H (14-18) Glucose 110 H (74-106) mg/dL Calcium 8.9 (8.5-10.1) mg/dL Total Bilirubin 0.2 (0.2-1.0) mg/dL AST 17 (15-37) U/L ALT 27 (16-63) U/L Alkaline Phosphatase 73 (46-116) U/L Total Protein 8.0 (6.4-8.2) g/dl Albumin 3.9 (3.4-5.0) g/dl Globulin 4.1 gm/dL Albumin/Globulin Ratio 1.0 (1-2) Lipase 90 (73-393) U/L Meds: Medications Generic Name Dose Route Start Last Admin Trade Name Freq PRN Reason Stop Dose Admin Sodium Chloride 1,000 mls @ 1,000 mls/hr 04/28/20 02:15 04/28/20 02:12 Normal Saline IV 1,000 mls/hr ASDIRECTED JAREN Administration Discontinued Medications Generic Name Dose Route Start Last Admin Trade Name Freq PRN Reason Stop Dose Admin Hydromorphone HCl 0.5 mg 04/28/20 02:05 04/28/20 02:11 Dilaudid IVPUSH 04/28/20 02:06 0.5 mg ONETIME ONE Administration Lactated Ringer's 1,000 mls @ 999 mls/hr 04/28/20 03:06 04/28/20 03:13 Ringers, Lactated IV 04/28/20 04:06 999 mls/hr .BOLUS ONE Administration Ondansetron HCl 4 mg 04/28/20 02:04 04/28/20 02:12 Zofran IVPUSH 04/28/20 02:05 4 mg ONETIME ONE Administration - Re-Assessments/Exams Free Text/Narrative Re-Assessment/Exam: 04/28/20 04:15 Spoke to the patient regarding all the blood work that was essentially normal. Departure - Departure Time of Disposition: 04:16 Disposition: Home, Self-Care 01 Condition: Good Clinical Impression: Food poisoning, Abdominal cramps Nausea and vomiting Qualifiers: Vomiting type: unspecified Vomiting Intractability: non-intractable Qualified Code(s): R11.2 - Nausea with vomiting, unspecified - Discharge Information *PRESCRIPTION DRUG MONITORING PROGRAM REVIEWED*: Not Applicable *COPY OF PRESCRIPTION DRUG MONITORING REPORT IN PATIENT JORDI: Not Applicable Prescriptions: Dicyclomine [Bentyl] 20 mg PO Q6H PRN #12 tab PRN Reason: Abdominal Pain Ondansetron [Zofran] 4 mg PO Q6H PRN #12 tab PRN Reason: Nausea Instructions: Food Poisoning, [id number] Referrals: Bryce Tenorio MD [Primary Care Provider] - Forms: ED Department Discharge Additional Instructions: Drink liquids only for the next 24 hours to let your belly rest, no alcohol and avoid caffeine and sodas, the last thing you want to start eating in about 2 to 3 days or vegetables and meat since they take a long time to digest they can irritate the stomach if it is already irritated, take the medicine for nausea and abdominal cramps if needed, rest and sleep is much as possible today, follow-up with your family doctor as needed or return to the ER if needed Sepsis Event Note (ED) - Evaluation Sepsis Screening Result: No Definite Risk - Focused Exam Vital Signs: Vital Signs Temp Pulse Resp BP Pulse Ox 04/28/20 01:42 97.2 F 72 16 163/101 H 93 L - My Orders Last 24 Hours: My Active Orders 04/28/20 02:15 Sodium Chloride 0.9% [Normal Saline] 1,000 ml IV ASDIRECTED - Assessment/Plan Last 24 Hours: My Active Orders 04/28/20 02:15 Sodium Chloride 0.9% [Normal Saline] 1,000 ml IV ASDIRECTED
[2020-04-28] MEDS ORDERED: Sodium Chloride 0.9% 1,000 ML IV SCH (02:15)
[2020-04-28] MEDS ORDERED: Lactated Ringers 1,000 ML IV ONE (03:06)
== END 2020-04-28 04:32 | disposition home or self-care (01) ==
LOC: JD.ED 01:32
DX: A05.9 Bacterial foodborne intoxication, unspecified (principal); F41.9 Anxiety disorder, unspecified; E78.00 Pure hypercholesterolemia, unspecified; Z88.1 Allergy status to other antibiotic agents; Z88.5 Allergy status to narcotic agent; Z79.899 Other long term (current) drug therapy
CPT/HCPCS: 36415; 80053; 83690; 85025; 96361; 96374; 96375; 99284; J1170; J2405; J7030; J7120

== ENCOUNTER 2020-08-01 08:56 | Emergency (ER) | payer BC ==
[2020-08-01 09:31] VITALS: BP 117/72; PULSE 68
[2020-08-01] MEDS ORDERED: Sodium Chloride 0.9% 10 ML Syringe FLUSH PRN (09:39)
[2020-08-01] MEDS ORDERED: Ketorolac 30 MG/ML SDV IVPUSH ONE (09:40)
[2020-08-01] MEDS ORDERED: HYDROmorphone 1 MG/ML Syringe IVPUSH ONE (09:40)
[2020-08-01] MEDS ORDERED: Cyclobenzaprine 10 MG Tab PO ONE (09:40)
--- NOTE | 2020-08-01 10:05 | EDM.PDOC ---
ED HPI GENERAL MEDICAL PROBLEM - General Chief Complaint: Back Pain or Injury Stated Complaint: LOW BACK AND HIP PAIN Time Seen by Provider: 08/01/20 09:23 Source of Information: Reports: Patient History Limitations: Reports: No Limitations - History of Present Illness INITIAL COMMENTS - FREE TEXT/NARRATIVE: The patient presents with low back pain. This started about 4am when he was sleeping. He denies any injury. He was playing with is grandchildren last night but there was no injury. He had pain similar to this 20 years ago when he had surgery on L4. He has constant pain with worsening cramping at times. He has no numbness or weakness. He has no bowel or bladder problems. He has no fever, chills, cough, congestion, runny nose, chest pain, shortness of breath, abdominal pain, nausea or vomiting. Onset: Sudden Duration: Hour(s): Location: Reports: Back Quality: Reports: Sharp Severity: Severe Improves with: Reports: Immobilization Worsens with: Reports: Movement Context: Denies: Trauma Associated Symptoms: Reports: No Other Symptoms Lower Back Pain Score (Numeric/FACES): 10 - Related Data Allergies Allergy/AdvReac Type Severity Reaction Status Date / Time amoxicillin AdvReac Abdominal Verified 04/28/20 01:45 Cramps oxycodone AdvReac Nausea Verified 04/28/20 01:45 Home Meds: Home Meds Rosuvastatin Calcium [Crestor] 10 mg PO BEDTIME 06/15/16 [History] Sertraline [Zoloft] 50 mg PO DAILY 09/02/16 [History] Cyclobenzaprine [Flexeril] 10 mg PO TID PRN #20 tab 08/01/20 [Rx] Hydrocodone/Acetaminophen [Hydrocodone-Acetamin 5-325 mg] 1 - 2 each PO Q6HR PRN #10 tablet 08/01/20 [Rx] Past Medical History HEENT History: Reports: Impaired Vision Cardiovascular History: Reports: High Cholesterol Gastrointestinal History: Reports: Diverticulosis Psychiatric History: Reports: Anxiety - Past Surgical History Musculoskeletal Surgical History: Reports: Shoulder Surgery, Other (See Below) Other Musculoskeletal Surgeries/Procedures:: minescus tear and repair Social & Family History - Family History Family Medical History: No Pertinent Family History - Tobacco Use Tobacco Use Status *Q: Never Tobacco User - Caffeine Use Caffeine Use: Reports: None - Recreational Drug Use Recreational Drug Use: No - Living Situation & Occupation Living situation: Reports: Occupation: Employed ED ROS GENERAL - Review of Systems Review Of Systems: See Below Constitutional: Reports: No Symptoms HEENT: Reports: No Symptoms Respiratory: Reports: No Symptoms Cardiovascular: Reports: No Symptoms Endocrine: Reports: No Symptoms GI/Abdominal: Reports: No Symptoms : Reports: No Symptoms Musculoskeletal: Reports: Back Pain Skin: Reports: No Symptoms Neurological: Reports: No Symptoms ED EXAM,LOWER BACK PAIN/INJURY - Physical Exam Exam: See Below Exam Limited By: No Limitations General Appearance: Alert, Moderate Distress Ears: Normal External Exam Nose: Normal Inspection Head: Atraumatic, Normocephalic Neck: Normal Inspection Respiratory/Chest: No Respiratory Distress, Lungs Clear, Normal Breath Sounds Cardiovascular: Regular Rate, Rhythm, No Edema, No Murmur GI/Abdominal: Soft, Non-Tender, No Organomegaly, No Mass Back Exam: Other (Pain upon palpation to the middle low back) Extremities: Normal Inspection Neurological: Alert, No Motor/Sensory Deficits, Oriented x 3 Course - Vital Signs Last Recorded V/S: Last Vital Signs Temp 98.1 F 08/01/20 09:23 Pulse 68 08/01/20 09:23 Resp 20 08/01/20 09:23 BP 117/72 08/01/20 09:23 Pulse Ox 95 08/01/20 09:23 - Orders/Labs/Meds Orders: Active Orders 24 hr Category Date Time Status Peripheral IV Care [RC] . DIRECTED Care 08/01/20 09:39 Active Sodium Chloride 0.9% [Saline Flush] Med 08/01/20 09:39 Active 10 ml FLUSH ASDIRECTED PRN Peripheral IV Insertion Adult [OM.PC] Routine Oth 08/01/20 09:39 Ordered Medication Orders Sodium Chloride (Saline Flush) 10 ml FLUSH ASDIRECTED PRN PRN Reason: Keep Vein Open Last Admin: 08/01/20 09:50 Dose: 10 ml Documented by: ANDI Meds: Medications Generic Name Dose Route Start Last Admin Trade Name Freq PRN Reason Stop Dose Admin Sodium Chloride 10 ml 08/01/20 09:39 08/01/20 09:50 Saline Flush FLUSH 10 ml ASDIRECTED PRN Administration Keep Vein Open Discontinued Medications Generic Name Dose Route Start Last Admin Trade Name Freq PRN Reason Stop Dose Admin Cyclobenzaprine HCl 10 mg 08/01/20 09:40 08/01/20 09:50 Flexeril PO 08/01/20 09:41 10 mg ONETIME ONE Administration Hydromorphone HCl 1 mg 08/01/20 09:40 08/01/20 09:50 Dilaudid IVPUSH 08/01/20 09:41 1 mg ONETIME ONE Administration Ketorolac Tromethamine 30 mg 08/01/20 09:40 08/01/20 09:49 Toradol IVPUSH 08/01/20 09:41 30 mg ONETIME ONE Administration - Re-Assessments/Exams Free Text/Narrative Re-Assessment/Exam: 08/01/20 10:06 I ordered an IV saline lock, dilaudid 1mg IV, toradol 30mg IV and flexeril 10mg PO. 08/01/20 10:55 He feels much better. I will get him on some flexeril and hydrocodone as needed. Departure - Departure Time of Disposition: 10:55 Disposition: Home, Self-Care 01 Condition: Good Clinical Impression: Low back pain Qualifiers: Chronicity: acute Back pain laterality: bilateral Sciatica presence: without sciatica Qualified Code(s): M54.5 - Low back pain - Discharge Information *PRESCRIPTION DRUG MONITORING PROGRAM REVIEWED*: No *COPY OF PRESCRIPTION DRUG MONITORING REPORT IN PATIENT JORDI: No Prescriptions: Cyclobenzaprine [Flexeril] 10 mg PO TID PRN #20 tab PRN Reason: Pain Hydrocodone/Acetaminophen [Hydrocodone-Acetamin 5-325 mg] 1 - 2 each PO Q6HR PRN #10 tablet PRN Reason: Pain Referrals: Bryce Tenorio MD [Primary Care Provider] - 1 Week Forms: ED Department Discharge Additional Instructions: Take tylenol or motrin as needed for pain. If that does not help try the flexeril and hydrocodone. Follow up with your doctor and your chiropractor. Please return if you are worse. Sepsis Event Note (ED) - Evaluation Sepsis Screening Result: No Definite Risk - Focused Exam Vital Signs: Vital Signs Temp Pulse Resp BP Pulse Ox 08/01/20 09:23 98.1 F 68 20 117/72 95 - My Orders Last 24 Hours: My Active Orders 08/01/20 09:39 Peripheral IV Care [RC] . DIRECTED Sodium Chloride 0.9% [Saline Flush] 10 ml FLUSH ASDIRECTED PRN Peripheral IV Insertion Adult [OM.PC] Routine - Assessment/Plan Last 24 Hours: My Active Orders 08/01/20 09:39 Peripheral IV Care [RC] . DIRECTED Sodium Chloride 0.9% [Saline Flush] 10 ml FLUSH ASDIRECTED PRN Peripheral IV Insertion Adult [OM.PC] Routine
== END 2020-08-01 12:00 | disposition home or self-care (01) ==
LOC: JD.ED 08:56
DX: M54.5 Low back pain (principal); E78.00 Pure hypercholesterolemia, unspecified; F41.9 Anxiety disorder, unspecified; Z88.1 Allergy status to other antibiotic agents; Z88.5 Allergy status to narcotic agent; Z79.899 Other long term (current) drug therapy
CPT/HCPCS: 96374; 96375; 99283; A9270; J1170; J1885; 99284

== ENCOUNTER 2024-07-10 06:00 | Day surgery (SDC) | payer OTHER ==
[~2024-07-10 06:00] MED LIST: Sodium Chloride 0.9% 10 ML Syringe FLUSH PRN; Sodium Chloride 0.9% 10 ML Syringe FLUSH SCH
[2024-07-10] MEDS: Lactated Ringers 1,000 ML IV SCH (06:00)
[2024-07-10] MEDS: oxyCODONE ER 10 MG TAB.ER PO ONE (06:05)
[2024-07-10] MEDS: Pregabalin 25 MG Cap PO ONE (06:05)
[2024-07-10] MEDS: Acetaminophen 325 MG Tab PO ONE (06:05)
[2024-07-10] MEDS ORDERED: Propofol 200 MG/20 ML SDV ONE ×7 (06:39→07:57)
[2024-07-10] MEDS ORDERED: Ondansetron 4 MG/2 ML SDV ONE (06:40)
[2024-07-10] MEDS ORDERED: Midazolam 1 MG/ML 2 ML SDV ONE (06:40)
[2024-07-10] MEDS ORDERED: Triamcinolone Acetonide 40 MG/ML 1 ML SDV ONE (06:41)
[2024-07-10] MEDS ORDERED: dexmedeTOMIDine HCl 200 MCG/2 ML SDV ONE (06:42)
[2024-07-10] MEDS ORDERED: Ropivacaine 0.5% 5 MG/ML 30 ML SDV ONE (06:45)
[2024-07-10] MEDS ORDERED: ceFAZolin 2 GM Vial ONE (07:06)
[2024-07-10] MEDS ORDERED: Phenylephrine 1% 10 MG/ML SDV ONE (07:09)
[2024-07-10] MEDS ORDERED: fentaNYL 100 MCG/2 ML SDV IVPUSH PRN (07:30)
[2024-07-10] MEDS ORDERED: HYDROmorphone 0.5 MG/0.5 ML Syringe IVPUSH ONE (08:00)
[2024-07-10] MEDS ORDERED: ePHEDrine 50 MG/ML SDV ONE (08:04)
[2024-07-10] MEDS: Morphine 8 MG, EPINEPHrine 0.3 MG, Cefuroxime 750 MG, Ketorolac 30 MG, Sodium Chloride ... PRN (08:29)
[2024-07-10] MEDS ORDERED: Lactated Ringers 1,000 ML ONE (08:32)
[2024-07-10] MEDS: Vancomycin 1 GM SDV ONE (08:32)
[2024-07-10] MEDS: Tranexamic Acid 1,000 MG/10 ML Vial ONE (08:32)
[2024-07-10] MEDS: Triamcinolone Acetonide 40 MG/ML 1 ML SDV ONE (08:45)
[2024-07-10] MEDS: Bupivacaine 0.25% 10 ML SDV ONE (08:45)
[2024-07-10] MEDS: oxyCODONE 5 MG Tab PO PRN (10:41)
[2024-07-10 12:54] VITALS: BP 121/70; PULSE 77
== END 2024-07-10 13:45 | disposition home or self-care (01) ==
LOC: JD.SDS 06:00
PROVIDERS: ATTEND Orthopaedic Surgery
DX: M17.0 Bilateral primary osteoarthritis of knee (principal); I10 Essential (primary) hypertension; E78.00 Pure hypercholesterolemia, unspecified; E66.9 Obesity, unspecified; Z88.1 Allergy status to other antibiotic agents; Z88.5 Allergy status to narcotic agent; Z79.899 Other long term (current) drug therapy; Z79.2 Long term (current) use of antibiotics; Z79.84 Long term (current) use of oral hypoglycemic drugs; Z87.891 Personal history of nicotine dependence; Z68.31 Body mass index [BMI] 31.0-31.9, adult; Z79.82 Long term (current) use of aspirin
CPT/HCPCS: 0055T; 20610; 27447; 64447; 73560; 97116; 97161; A9270; C1713; C1776; J0171; J0665; J0690; J0697; J1885; J2250; J2270; J2371; J2405; J2704; J2795; J3301; J3370; J7120; 01402; J3490

== ENCOUNTER 2024-07-16 17:59 | Inpatient (IN) | payer OTHER ==
[2024-07-16 18:44] LABS: BASOPHILS PERCENT AUTO 0.3 % (0.0-1.0); EOSINOPHILS ABSOLUTE AUTO 0.1 K/mm3 (0.0-0.4); EOSINOPHILS PERCENT AUTO 0.6 % (0.0-6.0); HEMATOCRIT 43.6 % (42.0-52.0); HEMOGLOBIN 14.4 gm/dl (14.0-18.0); IMMATURE GRAN ABSOLUTE AUTO 0.06 K/mm3 (0.00-0.05); IMMATURE GRAN PERCENT AUTO 0.5 % (0.0-0.4); LYMPHOCYTES PERCENT AUTO 15.5 % (24.0-44.0); MEAN CORPUSCULAR HEMOGLOBIN 29.5 pg (28.0-32.0); MEAN CORPUSCULAR VOLUME 89.3 fl (83.0-99.0); MEAN PLATELET VOLUME 8.7 fl (9.4-12.4); MONOCYTES ABSOLUTE AUTO 1.4 K/mm3 (0.0-0.8); MONOCYTES PERCENT AUTO 10.8 % (0.0-8.0); NEUTROPHILS ABSOLUTE AUTO 9.4 K/mm3 (1.8-7.7); NEUTROPHILS PERCENT AUTO 72.3 % (41.0-71.0); PLATELET COUNT,PLT 420 K/mm3 (150-400); RED BLOOD CELL COUNT 4.88 M/mm3 (4.52-5.90); WHITE BLOOD CELL COUNT,WBC 12.93 K/mm3 (3.9-11.3)
[2024-07-16 19:06] LABS: A/G RATIO 0.7 (1-2); ALBUMIN 3.5 g/dl (3.4-5.0); ANION GAP 15.4 (5-15); BILIRUBIN TOTAL 0.6 mg/dL (0.2-1.0); BUN/CREATININE RATIO 16.4 (14-18); C-REACTIVE PROTEIN 6.63 mg/dL (<0.30); CALCIUM 9.2 mg/dL (8.5-10.1); CREATININE 1.1 mg/dL (0.7-1.3); EST CRCL DRUG DOSING (CG) 70.05 mL/min; MAGNESIUM 1.9 mg/dL (1.8-2.4); POTASSIUM,K 4.4 mEq/L (3.5-5.1); PROTEIN TOTAL,TP 8.4 g/dl (6.4-8.2)
[2024-07-16] MEDS ORDERED: Sodium Chloride 0.9% 10 ML Syringe FLUSH PRN (19:24)
[2024-07-16] MEDS: Sodium Chloride 0.9% 10 ML Syringe FLUSH PRN (19:40)
[2024-07-16] MEDS: HYDROmorphone 1 MG/ML Syringe IVPUSH ONE ×2 (19:44→21:36)
[2024-07-16 19:47] LABS: APPEARANCE,URINE CLEAR (Clear); BILIRUBIN,URINE NEGATIVE (Negative); COLOR,URINE YELLOW (Yellow); GLUCOSE,URINE NEGATIVE (Negative); KETONES,URINE NEGATIVE (Negative); LEUKOCYTE ESTERASE,URINE NEGATIVE (Negative); NITRITE,URINE NEGATIVE (Negative); OCCULT BLOOD,URINE NEGATIVE (Negative); PROTEIN,URINE NEGATIVE (Negative); UROBILINOGEN,URINE 0.2 (0.2-1.0)
[2024-07-16] MEDS: Sodium Chloride 0.9% 1,000 ML IV ONE ×2 (19:47→23:28)
[2024-07-16] MEDS: Iopamidol 612 MG/ML 100 ML Bottle IVPUSH ONE (20:27)
[2024-07-16] MEDS: Piperacillin/Tazobactam 4.5 GM in Sodium Chloride 0.9% 100 ML IV ONE (23:28)
[2024-07-17] MEDS: HYDROmorphone 0.5 MG/0.5 ML Syringe IVPUSH SCH (00:24)
[2024-07-17] MEDS: Acetaminophen 325 MG Tab PO PRN (05:22)
[2024-07-17 05:39] LABS: BASOPHILS PERCENT AUTO 0.2 % (0.0-1.0); EOSINOPHILS ABSOLUTE AUTO 0.1 K/mm3 (0.0-0.4); EOSINOPHILS PERCENT AUTO 0.5 % (0.0-6.0); HEMATOCRIT 41.6 % (42.0-52.0); HEMOGLOBIN 13.9 gm/dl (14.0-18.0); IMMATURE GRAN ABSOLUTE AUTO 0.05 K/mm3 (0.00-0.05); IMMATURE GRAN PERCENT AUTO 0.4 % (0.0-0.4); LYMPHOCYTES ABSOLUTE AUTO 2.3 K/mm3 (1.0-4.8); LYMPHOCYTES PERCENT AUTO 17.6 % (24.0-44.0); MEAN CORPUSCULAR HEMOGLOBIN 29.6 pg (28.0-32.0); MEAN CORPUSCULAR HGB CONC 33.4 g/dl (32.0-36.0); MEAN CORPUSCULAR VOLUME 88.7 fl (83.0-99.0); MEAN PLATELET VOLUME 8.8 fl (9.4-12.4); MONOCYTES ABSOLUTE AUTO 1.4 K/mm3 (0.0-0.8); MONOCYTES PERCENT AUTO 10.4 % (0.0-8.0); NEUTROPHILS ABSOLUTE AUTO 9.3 K/mm3 (1.8-7.7); NEUTROPHILS PERCENT AUTO 70.9 % (41.0-71.0); PLATELET COUNT,PLT 400 K/mm3 (150-400); RED BLOOD CELL COUNT 4.69 M/mm3 (4.52-5.90); WHITE BLOOD CELL COUNT,WBC 13.17 K/mm3 (3.9-11.3)
[2024-07-17 05:54] LABS: ANION GAP 15.4 (5-15); BUN/CREATININE RATIO 12.7 (14-18); CALCIUM 9.1 mg/dL (8.5-10.1); CREATININE 1.1 mg/dL (0.7-1.3); EST CRCL DRUG DOSING (CG) 72.26 mL/min; PHOSPHORUS 4.2 mg/dL (2.6-4.7); POTASSIUM,K 4.4 mEq/L (3.5-5.1)
[2024-07-17] MEDS ORDERED: Albuterol 0.083% 2.5 MG/3 ML Neb Soln NEB PRN (08:38)
[2024-07-17] MEDS: Piperacillin/Tazobactam 4.5 GM in Sodium Chloride 0.9% 100 ML IV ONE (08:46)
[2024-07-17] MEDS ORDERED: Aspirin 325 MG Tab.EC PO SCH (09:00)
[2024-07-17] MEDS: Piperacillin/Tazobactam 4.5 GM in Sodium Chloride 0.9% 100 ML IV SCH (09:03)
[2024-07-17] MEDS: Dextrose 5%-0.9% NaCl 1,000 ML IV SCH (09:57)
[2024-07-17] MEDS: Enoxaparin 40 MG/0.4 ML Syringe SUBCUT SCH (09:57)
[2024-07-17] MEDS: oxyCODONE 5 MG Tab PO PRN (11:07)
[2024-07-17] MEDS: Ondansetron 4 MG/2 ML SDV IV PRN (14:12)
[2024-07-17] MEDS: HYDROmorphone 0.5 MG/0.5 ML Syringe IVPUSH PRN (14:13)
[2024-07-17] MEDS: Cetirizine 10 MG Tab PO ONE (18:58)
[2024-07-17] MEDS: Polyethylene Glycol 3350 Powder 17 GM Packet PO SCH (19:26)
[2024-07-17] MEDS: Sodium Chloride 0.9% 1,000 ML IV SCH (19:45)
[2024-07-17] MEDS: DULoxetine 30 MG Cap PO SCH (20:48)
[2024-07-17] MEDS: Losartan 50 MG Tab PO SCH (20:49)
[2024-07-18 04:36] LABS: BASOPHILS PERCENT AUTO 0.2 % (0.0-1.0); EOSINOPHILS ABSOLUTE AUTO 0.1 K/mm3 (0.0-0.4); EOSINOPHILS PERCENT AUTO 0.7 % (0.0-6.0); HEMATOCRIT 37.5 % (42.0-52.0); HEMOGLOBIN 12.4 gm/dl (14.0-18.0); IMMATURE GRAN ABSOLUTE AUTO 0.03 K/mm3 (0.00-0.05); IMMATURE GRAN PERCENT AUTO 0.3 % (0.0-0.4); LYMPHOCYTES ABSOLUTE AUTO 1.8 K/mm3 (1.0-4.8); LYMPHOCYTES PERCENT AUTO 19.3 % (24.0-44.0); MEAN CORPUSCULAR HEMOGLOBIN 29.6 pg (28.0-32.0); MEAN CORPUSCULAR HGB CONC 33.1 g/dl (32.0-36.0); MEAN CORPUSCULAR VOLUME 89.5 fl (83.0-99.0); MEAN PLATELET VOLUME 8.9 fl (9.4-12.4); MONOCYTES ABSOLUTE AUTO 1.1 K/mm3 (0.0-0.8); MONOCYTES PERCENT AUTO 11.6 % (0.0-8.0); NEUTROPHILS ABSOLUTE AUTO 6.3 K/mm3 (1.8-7.7); NEUTROPHILS PERCENT AUTO 67.9 % (41.0-71.0); PLATELET COUNT,PLT 344 K/mm3 (150-400); RED BLOOD CELL COUNT 4.19 M/mm3 (4.52-5.90); WHITE BLOOD CELL COUNT,WBC 9.21 K/mm3 (3.9-11.3)
[2024-07-18 05:14] LABS: A/G RATIO 0.6 (1-2); ALBUMIN 2.9 g/dl (3.4-5.0); ANION GAP 13.1 (5-15); BUN/CREATININE RATIO 13.3 (14-18); C-REACTIVE PROTEIN 13.2 mg/dL (<0.30); CALCIUM 9.1 mg/dL (8.5-10.1); CREATININE 0.9 mg/dL (0.7-1.3); EST CRCL DRUG DOSING (CG) 88.31 mL/min; POTASSIUM,K 4.1 mEq/L (3.5-5.1); PROTEIN TOTAL,TP 7.4 g/dl (6.4-8.2)
[2024-07-18] MEDS: Acetaminophen 325 MG Tab PO ONE (10:14)
[2024-07-18 11:39] VITALS: BP 104/71; PULSE 81
[2024-07-18] MEDS: FLU (Flulaval Triv) 24-25(6MOS UP)/PF 45 MCG/0.5 ML Syringe IM ONE (11:56)
[2024-07-18] MEDS ORDERED: Acetaminophen 325 MG Tab PO SCH ×2 (15:00)
== END 2024-07-18 13:07 | disposition home or self-care (01) | DRG 392 ==
LOC: JD.ED 17:59 → JD.MS 23:15
PROVIDERS: ADMIT Student in an Organized Health Care Education/Training Program; ATTEND Student in an Organized Health Care Education/Training Program
DX: K57.20 Diverticulitis of large intestine with perforation and abscess without bleeding (principal); I10 Essential (primary) hypertension; E78.00 Pure hypercholesterolemia, unspecified; F41.9 Anxiety disorder, unspecified; F32.A Depression, unspecified; H54.7 Unspecified visual loss; D72.829 Elevated white blood cell count, unspecified; Z79.82 Long term (current) use of aspirin; Z79.84 Long term (current) use of oral hypoglycemic drugs; Z86.16 Personal history of COVID-19; Z90.79 Acquired absence of other genital organ(s); Z79.899 Other long term (current) drug therapy; Z87.891 Personal history of nicotine dependence; Z96.651 Presence of right artificial knee joint
CPT/HCPCS: 36415; 74177; 74177-26; 80048; 80053; 81003; 82947; 83690; 83735; 84100; 85025; 86140; 96374; 96376; 97110-GP; 97116-GP; 97140-GP; 97161-GP; 99285; 99285-25; A9270-GY; J1171; J1650; J2405; J2543; J3490; J7030; J7042; Q9967

== ENCOUNTER 2024-09-10 08:35 | Emergency (ER) | payer OTHER ==
[2024-09-10] MEDS ORDERED: Sodium Chloride 0.9% 10 ML Syringe FLUSH PRN (08:50)
[2024-09-10 09:01] LABS: BASOPHILS PERCENT AUTO 0.2 % (0.0-1.0); EOSINOPHILS PERCENT AUTO 0.7 % (0.0-6.0); HEMATOCRIT 46.2 % (42.0-52.0); HEMOGLOBIN 14.8 gm/dl (14.0-18.0); LYMPHOCYTES ABSOLUTE AUTO 1.9 K/mm3 (1.0-4.8); LYMPHOCYTES PERCENT AUTO 40.4 % (24.0-44.0); MEAN CORPUSCULAR HEMOGLOBIN 29.3 pg (28.0-32.0); MEAN CORPUSCULAR VOLUME 91.5 fl (83.0-99.0); MEAN PLATELET VOLUME 9.1 fl (9.4-12.4); MONOCYTES ABSOLUTE AUTO 0.6 K/mm3 (0.0-0.8); MONOCYTES PERCENT AUTO 12.6 % (0.0-8.0); NEUTROPHILS ABSOLUTE AUTO 2.1 K/mm3 (1.8-7.7); NEUTROPHILS PERCENT AUTO 46.1 % (41.0-71.0); PLATELET COUNT,PLT 268 K/mm3 (150-400); RED BLOOD CELL COUNT 5.05 M/mm3 (4.52-5.90)
[2024-09-10] MEDS: methylPREDNISolone Sodium Succinate 125 MG/2 ML SDV IVPUSH ONE (09:18)
[2024-09-10] MEDS: Ondansetron 4 MG/2 ML SDV IVPUSH ONE (09:18)
[2024-09-10] MEDS: Sodium Chloride 0.9% 1,000 ML IV SCH (09:18)
[2024-09-10 09:20] LABS: A/G RATIO 0.8 (1-2); ALBUMIN 3.6 g/dl (3.4-5.0); ANION GAP 15.6 (5-15); BILIRUBIN TOTAL 0.3 mg/dL (0.2-1.0); CALCIUM 8.8 mg/dL (8.5-10.1); EST CRCL DRUG DOSING (CG) 77.06 mL/min; MAGNESIUM 1.9 mg/dL (1.8-2.4); POTASSIUM,K 4.6 mEq/L (3.5-5.1); PROTEIN TOTAL,TP 7.9 g/dl (6.4-8.2)
[2024-09-10] MEDS: Meclizine 25 MG Tab PO ONE (09:27)
[2024-09-10 12:28] VITALS: BP 139/82; PULSE 88
== END 2024-09-10 12:30 | disposition home or self-care (01) ==
LOC: JD.ED 08:35
DX: B34.9 Viral infection, unspecified (principal); H69.93 Unspecified Eustachian tube disorder, bilateral; H81.23 Vestibular neuronitis, bilateral; I10 Essential (primary) hypertension; Z86.16 Personal history of COVID-19; Z79.84 Long term (current) use of oral hypoglycemic drugs; Z79.899 Other long term (current) drug therapy
CPT/HCPCS: 36415; 70450; 71045; 80053; 82550; 82947; 83735; 84484; 85025; 87428; 96361; 96374; 96375; 99285; A9270; J2405; J2919; J7030